=== PATIENT | female | born 1945 | race Caucasian/White ===

== ENCOUNTER → 2019-09-17 13:20 | Outpatient (CLI) | payer MEDICARE, SELFPAY ==
--- NOTE | 2019-09-16 | FLU_PTH ---
PATIENT: NASIR LUNA LOC: [facility] U#:[id number] AGE/SX: 80/F ROOM: RE09/17/[address]: Dr. Pippa Lopez MD : 1945 BED: DIS: SPEC #: [id number] RECD: 09/16/19 16:38 STATUS: SOUAni REQ #: [id number] TWAN: 09/16/19 00:[address]: Pippa Lopez DEPT: CYTOLOGY RECD BY: Kofi Whittaker ENTERED: 09/17/19 13:33 SP TYPE: Fluid OTHR DR: MD Dr. Demi Juan MD Tissues: A - Thyroid gland, NOS B - Thyroid gland, NOS C - Thyroid gland, NOS D - Thyroid gland, NOS Procedures: Special Stain Group II Surgery Specimen Level IV Cytospin Fluid Comments: @ Ordering doctor for SSII edited from to @ by ROXANNA at 09/18/19 08 @ Ordering doctor for SUIV edited from to DR.[email or web address] Nguyen by ROXANNA at 09/18/19 08 @ Ordering doctor for CYSPIN edited from to @ by ROXANNA at 09/18/19 08 @ Submitting doctor edited from to @ by RGOOD at 09/18/19 0820 HEADER OPERATION: Ultrasound-guided fine needle aspiration bilateral thyroid PRE-OP DIAGNOSIS: Thyroid nodules TISSUE SUBMITTED: A - Right thyroid FNA fluid, B - Right thyroid FNA 2 slides, C - Left thyroid FNA fluid, D - Left thyroid FNA 6 slides DIAGNOSIS CYTOLOGY A. Fine needle aspiration, right thyroid nodule (cytospin and cell block): Adequate for evaluation. Negative, consistent with benign follicular nodule with changes of cyst. B. Fine needle aspiration, right thyroid nodule (smears): Colloid material and macrophages consistent with colloid nodule. C. Fine needle aspiration, left thyroid nodule (cytospin and cell block): Adequate for evaluation. Consistent with benign follicular nodule. B. Fine needle aspiration, left thyroid nodule (smears): Adequate for evaluation. Negative, consistent with benign colloid nodule. AM:winnie 09/18/19 CYTOLOGY STUDY Slides are reviewed. CYTOLOGY GROSS A - Received is 10 ml of light brown cloudy fluid labeled with the patient's name and and designated per the requisition as right thyroid. Submitted for cytology preparation including cell block. B - Received are two smears labeled with the patient's name and designated per the requisition as right thyroid. Submitted for staining. C - Received is 40 ml of brown cloudy fluid labeled with the patient's name and and designated per the requisition as left thyroid. Submitted for cytology preparation including cell block. D - Received are six smears labeled with the patient's name and designated per the requisition as left thyroid. Submitted for staining. / winnie 09/17/19 TC:5 CPT: 10738 x2, 60074 x2, 68766 x2
== END ==
PROVIDERS: PCP Family Medicine; Referring Provider Surgery; Visit Provider Surgery
DX: E04.1 Nontoxic single thyroid nodule (principal)
CPT/HCPCS: 88108; 88305; 88313

== ENCOUNTER 2022-05-11 17:31 | Emergency (ER) | payer MEDICARE, SELFPAY ==
[2022-05-11 17:32] VITALS: BP 135/55; PULSE 66; RESP 20; TEMP 36.9; O2SAT 92; BMI 24.6
== END 2022-05-11 18:30 | disposition left against medical advice (07) ==
LOC: ED 18:44
PROVIDERS: PCP Family Medicine
DX: Z53.21 Procedure and treatment not carried out due to patient leaving prior to being seen by health care provider (principal)